=== PATIENT | male | born 1965 | race Two or more races ===

== ENCOUNTER → 2020-07-18 12:51 | Outpatient (BNVA) | payer OTHER, SELFPAY | PROVIDERS: PCP Internal Medicine; Referring Provider Internal Medicine; Visit Provider Nurse Practitioner Gerontology | DX: E11.42 Type 2 diabetes mellitus with diabetic polyneuropathy (principal); I10 Essential (primary) hypertension; E78.5 Hyperlipidemia, unspecified | CPT/HCPCS: 82947; 99212 ==

== ENCOUNTER → 2020-08-22 11:57 | Outpatient (BNVA) | payer OTHER, SELFPAY | PROVIDERS: PCP Internal Medicine; Visit Provider Nurse Practitioner Gerontology | DX: Z76.89 Persons encountering health services in other specified circumstances (principal) ==

== ENCOUNTER 2020-10-03 10:02 | Outpatient (REF) | payer OTHER, SELFPAY ==
[2020-10-03 10:54] LABS: Estimated Average Glucose 146 mg/dL; Hemoglobin A1c % 6.7 %
[2020-10-03 11:04] LABS: Alanine Aminotransferase 45 U/L (0-40); Albumin Level 4.2 g/dL (3.5-5.0); Alkaline Phosphatase 94 U/L (39-117); Anion Gap 12 (12-20); Aspartate Amino Transferase 35 U/L (5-37); Bilirubin Total 0.6 mg/dL (0.0-1.0); Blood Urea Nitrogen 12 mg/dL (9-16); Calcium 9.4 mg/dL (8.4-10.2); Carbon Dioxide 30 mmol/L (22-29); Chloride 106 mmol/L (96-108); Cholesterol 119 mg/dL; Estimated Glomerular Filt Rate > 60; Glucose Fasting 117 mg/dL (60-99); HDL Cholesterol 28 mg/dL; LDL Cholesterol Calculated 75 mg/dl; Potassium 4.7 mmol/L (3.3-5.1); Sodium 143 mmol/L (135-145); Triglycerides 81 mg/dL
[2020-10-03 15:29] LABS: Creatinine Urine 59.82 mg/dL; Microalbumin Urine < 5.0 mg/L
== END 2020-10-03 10:03 | disposition home or self-care (01) ==
LOC: HO.10HDL 10:02
PROVIDERS: Visit Provider Nurse Practitioner Gerontology
DX: E11.42 Type 2 diabetes mellitus with diabetic polyneuropathy (principal)
CPT/HCPCS: 36415; 80053; 80061; 82043; 83036

== ENCOUNTER → 2020-10-06 13:01 | Outpatient (BNVA) | payer OTHER, SELFPAY | PROVIDERS: PCP Internal Medicine; Visit Provider Nurse Practitioner Gerontology | DX: E11.42 Type 2 diabetes mellitus with diabetic polyneuropathy (principal); I10 Essential (primary) hypertension; E78.5 Hyperlipidemia, unspecified | CPT/HCPCS: 82947; 99212 ==

== ENCOUNTER → 2021-01-01 12:17 | Outpatient (BNVA) | payer OTHER, SELFPAY | PROVIDERS: PCP Internal Medicine; Visit Provider Nurse Practitioner Gerontology | DX: E11.42 Type 2 diabetes mellitus with diabetic polyneuropathy (principal); E78.5 Hyperlipidemia, unspecified; I10 Essential (primary) hypertension | CPT/HCPCS: 82947; 99212 ==

== ENCOUNTER → 2021-07-09 12:01 | Outpatient (BNVA) | payer OTHER, SELFPAY | PROVIDERS: PCP Internal Medicine; Visit Provider Nurse Practitioner Gerontology | DX: E11.42 Type 2 diabetes mellitus with diabetic polyneuropathy (principal); I10 Essential (primary) hypertension; E78.5 Hyperlipidemia, unspecified | CPT/HCPCS: 82947; 83036; 99212 ==

== ENCOUNTER 2021-11-23 10:53 | Outpatient (REF) | payer OTHER, SELFPAY ==
[2021-11-23 11:43] LABS: Estimated Average Glucose 134 mg/dL; Hemoglobin A1c % 6.3 %
[2021-11-23 12:13] LABS: Alanine Aminotransferase 33 U/L (0-40); Alkaline Phosphatase 90 U/L (39-117); Anion Gap 12 (12-20); Aspartate Amino Transferase 27 U/L (5-37); Bilirubin Total 0.8 mg/dL (0.0-1.0); Blood Urea Nitrogen 10 mg/dL (9-16); Calcium 9.8 mg/dL (8.4-10.2); Carbon Dioxide 27 mmol/L (22-29); Chloride 107 mmol/L (96-108); Estimated Glomerular Filt Rate > 60; Glucose Random 118 mg/dL (60-115); Potassium 4.5 mmol/L (3.3-5.1); Sodium 141 mmol/L (135-145); Total Protein 6.9 g/dL (6.5-8.0)
== END 2021-11-23 10:54 | disposition home or self-care (01) ==
LOC: HO.LAB 10:53
PROVIDERS: PCP Internal Medicine; Visit Provider Internal Medicine
DX: Z00.00 Encounter for general adult medical examination without abnormal findings (principal); E11.9 Type 2 diabetes mellitus without complications; E78.00 Pure hypercholesterolemia, unspecified; I10 Essential (primary) hypertension; M43.3 Recurrent atlantoaxial dislocation with myelopathy; Z86.010 Personal history of colon polyps
CPT/HCPCS: 36415; 80053; 83036

== ENCOUNTER → 2022-02-27 14:54 | Outpatient (BNVA) | payer OTHER, SELFPAY | PROVIDERS: PCP Internal Medicine; Visit Provider Internal Medicine Endocrinology, Diabetes & Metabolism | DX: E11.42 Type 2 diabetes mellitus with diabetic polyneuropathy (principal); Z96.41 Presence of insulin pump (external) (internal); Z79.4 Long term (current) use of insulin | CPT/HCPCS: 82947; 99212 ==

== ENCOUNTER → 2022-04-01 14:44 | Outpatient (BNVA) | payer OTHER, SELFPAY | PROVIDERS: PCP Internal Medicine; Visit Provider Registered Nurse Diabetes Educator | DX: E11.65 Type 2 diabetes mellitus with hyperglycemia (principal); E11.42 Type 2 diabetes mellitus with diabetic polyneuropathy; Z89.411 Acquired absence of right great toe; Z96.41 Presence of insulin pump (external) (internal); Z79.4 Long term (current) use of insulin; Z46.81 Encounter for fitting and adjustment of insulin pump | CPT/HCPCS: 99211 ==

== ENCOUNTER → 2022-04-29 14:38 | Outpatient (BNVA) | payer OTHER, SELFPAY | PROVIDERS: PCP Internal Medicine; Visit Provider Registered Nurse Diabetes Educator | DX: Z46.81 Encounter for fitting and adjustment of insulin pump (principal); E11.42 Type 2 diabetes mellitus with diabetic polyneuropathy; Z79.4 Long term (current) use of insulin | CPT/HCPCS: 99211 ==

== ENCOUNTER 2022-06-20 10:13 | Outpatient (REF) | payer OTHER, SELFPAY ==
[2022-06-20 14:15] LABS: Alanine Aminotransferase 23 U/L (0-40); Albumin Level 4.1 g/dL (3.5-5.0); Alkaline Phosphatase 76 U/L (39-117); Anion Gap 13 (12-20); Aspartate Amino Transferase 24 U/L (5-37); Bilirubin Total 0.4 mg/dL (0.0-1.0); Blood Urea Nitrogen 12 mg/dL (9-16); Calcium 9.6 mg/dL (8.4-10.2); Carbon Dioxide 29 mmol/L (22-29); Chloride 106 mmol/L (96-108); Estimated Glomerular Filt Rate > 60; Glucose Random 107 mg/dL (60-115); Prostate Specific Antigen 1.09 ng/mL (<0.05-4.0); Sodium 143 mmol/L (135-145); Total Protein 6.7 g/dL (6.5-8.0)
[2022-06-20 14:16] LABS: Estimated Average Glucose 120 mg/dL; Hemoglobin A1c % 5.8 %
== END 2022-06-20 10:14 | disposition home or self-care (01) ==
LOC: HO.10HDL 10:13
PROVIDERS: Visit Provider Internal Medicine
DX: Z00.00 Encounter for general adult medical examination without abnormal findings (principal); E11.40 Type 2 diabetes mellitus with diabetic neuropathy, unspecified; E78.00 Pure hypercholesterolemia, unspecified; I10 Essential (primary) hypertension
CPT/HCPCS: 36415; 80053; 83036; 84153

== ENCOUNTER → 2022-07-02 13:34 | Outpatient (BNVA) | payer OTHER, SELFPAY | PROVIDERS: PCP Internal Medicine; Visit Provider Internal Medicine Endocrinology, Diabetes & Metabolism | DX: E11.42 Type 2 diabetes mellitus with diabetic polyneuropathy (principal); Z79.4 Long term (current) use of insulin; Z79.84 Long term (current) use of oral hypoglycemic drugs; Z96.41 Presence of insulin pump (external) (internal) | CPT/HCPCS: 82947; 99212 ==

== ENCOUNTER → 2022-09-02 13:30 | Outpatient (BNVA) | payer OTHER, SELFPAY | PROVIDERS: PCP Internal Medicine; Visit Provider Registered Nurse Diabetes Educator | DX: E11.42 Type 2 diabetes mellitus with diabetic polyneuropathy (principal); Z79.4 Long term (current) use of insulin; Z96.41 Presence of insulin pump (external) (internal) | CPT/HCPCS: 99211 ==

== ENCOUNTER → 2022-09-25 13:00 | Outpatient (BNVA) | payer OTHER, SELFPAY | PROVIDERS: PCP Internal Medicine; Visit Provider Internal Medicine Endocrinology, Diabetes & Metabolism | DX: E11.42 Type 2 diabetes mellitus with diabetic polyneuropathy (principal); Z96.41 Presence of insulin pump (external) (internal) | CPT/HCPCS: 82947; 83036; 99212 ==

== ENCOUNTER 2023-03-05 13:01 | Outpatient (AMB) | payer OTHER, SELFPAY ==
--- NOTE | 2023-03-05 13:10 | A.OFFVIS_ITS ---
Intake Intake Visit Reasons: DM with pump Allergies No Known Allergies Allergy (Verified 02/27/22 15:04) [facility] Comprehensive Diabetes Asmnt Most Recent Diabetes Results: Creatinine 0.83 mg/dL (0.5-1.4) 06/20/22 Blood Urea Nitrogen 12 mg/dL (9-16) 06/20/22 Sodium 143 mmol/L (135-145) 06/20/22 Potassium 5.0 mmol/L (3.3-5.1) 06/20/22 Chloride 106 mmol/L (96-108) 06/20/22 Carbon Dioxide 29 mmol/L (22-29) 06/20/22 Calcium 9.6 mg/dL (8.4-10.2) 06/20/22 AST 24 U/L (5-37) 06/20/22 ALT 23 U/L (0-40) 06/20/22 Total Protein 6.7 g/dL (6.5-8.0) 06/20/22 Albumin 4.1 g/dL (3.5-5.0) 06/20/22 [facility] Medical History Essential hypertension Hyperlipidemia LDL goal <100 Neuropathy Type 2 diabetes mellitus with polyneuropathy Surgical History History of amputation of right great toe Hx of umbilical hernia repair Family History Father Diabetes Mother Diabetes Hypertension Heart disease Maternal Aunt Diabetes Paternal Aunt Diabetes Paternal Uncle Diabetes Social History (Updated 09/25/22 @ 13:20 by ABBE Klein) Household Members: Family Alcohol intake: never Patient Tobacco Use Status: Never used Tobacco Assessment & Plan Assessment & Plan (1) Type 2 diabetes mellitus with polyneuropathy: Code(s): E11.42 - Type 2 diabetes mellitus with diabetic polyneuropathy Plan: Patient presents for pump training for T [facility] with control IQ and Dexcom G6 patient lost transmitter and has not been able to use insulin pump with Dexcom G6 integration At today's visit Gave patient sample sensor and transmitter, connected transmitter to both insulin pump and patient's self Patient has been frustrated with can activity issues between insulin pump and Dexcom G6, he has had to replace sensors after sleeping directly on sensor in transmitter. Patient asked if he could switch to Omnipod 5 Explained to patient that both Omnipod and T slim use Dexcom G6 sensors, having can activity issues can happen either pump The following topics were reviewed today: - When to change set or Pod - T slim with control IQ verses Omnipod 5 - try not to sleep directly on transmitter to promote better can activity - Sensor setting (if applicable) ??? High Alert: 200 mg/dl ??? Low Alert: 70? mg/dl patient above target 7% patient at target 92% patient below target 1% patient's average glucose for the past 2 weeks 133 mg/dL patient's last A1c December 2022, patient did not recall value. Patient has next appointment with Dr. Lopez in 03/13/2023 Safety information: Patient understands the basic concepts of pump therapy, how to give insulin for meals and snacks, how to troubleshoot for hyper and hypoglycemia. reviewed with patient how important it is to change insulin delivery set every 72 hours to prevent infection or hypertrophy Reviewed with patient how to treat hypoglycemia and to call if hypoglycemia increases Setting verified by CDCES, no changes made to patient's pump settings at today's visit Basal rate(s) (units/hour) : 12 AM to 8 AM 0.9 units / hr 8 AM? to 12 AM? 0.85 units / hr Bolus setting Insulin Carbohydrate Ratio (s) 12 AM to 12 AM? 1:10 Correction Factor / Sensitivity Factor 12 AM to 12 AM? 1:40 Active Insulin Time:? 5 hours Target(s): Control IQ 12 AM to 12 AM? 110 Coding Level of Care Code Est Pt Level 1 (28359) Diagnoses Type 2 diabetes mellitus with polyneuropathy E11.42
== END 2023-03-05 13:24 | disposition home or self-care (01) ==
PROVIDERS: PCP Internal Medicine; Visit Provider Registered Nurse Diabetes Educator
DX: E11.42 Type 2 diabetes mellitus with diabetic polyneuropathy (principal)

== ENCOUNTER → 2023-03-05 13:01 | Outpatient (BNVA) | payer OTHER, SELFPAY | PROVIDERS: PCP Internal Medicine; Visit Provider Registered Nurse Diabetes Educator | DX: Z46.81 Encounter for fitting and adjustment of insulin pump (principal); E11.42 Type 2 diabetes mellitus with diabetic polyneuropathy | CPT/HCPCS: 99211 ==

== ENCOUNTER 2023-03-13 12:58 | Outpatient (AMB) | payer OTHER, SELFPAY ==
--- NOTE | 2023-03-13 12:58 | A.OFFVIS_ITS ---
Intake Vital Signs 03/13/23 13:07 Height 5 ft 8 in Weight 195 lb 12.328 oz BMI 29.8 BP 112/62 Blood Pressure Location Lt brachial Position Sitting Pulse 80 Intake Visit Reasons: f/u Type 2 DM Intake Note: Patient here today for Diabetes type 2 follow up visit. For eye care patient last seen For foot care patient last seen February 25, 2023 Pump supplies received from [facility]. poc- a1c- 6.5 Special Crimes Investigator Required: Yes Special Crimes Investigator Language: Ivorian Accompanied by: Self / Same As Patient Allergies No Known Allergies Allergy (Verified 03/13/23 13:10) Medication List - Last Reconciled 03/13/23 by Cabrera Lopez MD aspirin 81 mg PO DAILY blood sugar diagnostic (FreeStyle Lite Strips) As directed four times a day blood-glucose meter,continuous (Dexcom G6 Civil Rights Investigator) As directed blood-glucose sensor (Dexcom G6 Sensor device) As directed blood-glucose transmitter (Dexcom G6 Transmitter device) As directed cyanocobalamin (vitamin B-12) 1,000 mcg PO dulaglutide (Trulicity) 1.5 mg (0.5 mL) subcut QWEEK epinephrine 0.3 mg IM ONCE PRN flash glucose scanning reader (FreeStyle Vane 14 Day [place]) As directed flash glucose sensor (FreeStyle Vane 14 Day Sensor kit) As directed Scan blood glucose 4 or more times daily, At least every 8 hours. gabapentin 600 mg PO TID insulin lispro (Humalog U-100 Insulin) up to 100 units via pump subcut daily; lancets (FreeStyle Lancets) As directed lisinopril 5 mg PO mecobalamin (vitamin B12) 1,000 mcg PO DAILY metformin 1,000 mg PO BID pen needle, diabetic (BD Cathi 2nd Gen Pen Needle) As directed rosuvastatin 20 mg PO BEDTIME triamcinolone acetonide (Nasacort) 1 spray intranasal DAILY HPI HPI Comments History of Present Illness Details Patient is 57 yo male with DM type 2 diagnosed 1995 who presents for continued management of diabetes. Past medical history: Dm2, HTN, HLD, Micro and macrovascular complications: , +neuropathy, + PVD Diabetes medications: Humalog via Tandem T:Slim metformin 1000 mg BID Symptoms reported: reports hot and cold legs and feet. Hypoglycemia: very rare once a week infreqently Hyperglycemia: + urinary frequency,(drinks frequently)+ nocturia on occasion, Tandem Tslim: X2 with control IQ pump settings: Also on Trulicity 1.5 mg q.week and metformin 1000 mg b.i.d. Basal rate(s) (units/hour) : 12 AM to 8 AM 0.9 units / hr 8 AM? to 12 AM? 0.85 units / hr Bolus setting Insulin Carbohydrate Ratio (s) 12 AM to 12 AM? 1:10 Correction Factor / Sensitivity Factor 12 AM to 12 AM? 1:40 Active Insulin Time:? 5 hours Target(s): Control IQ 12 AM to 12 AM? 110 Total daily insulin dose is 50.7 with basal being 39% and food bolus being 61% CGM: [employer] download. Contr CGMS active 79% of the time. showsol IQ time off 0% . Average glucose is 136. 93% in target with 7% hyperglycemia and 0% hypoglycemia sees podiatry 02/03/22 Exercise: Not opptimal Eye exam: 10/2022 - no retinopathy saw optho No hypoglycemia Laboratory Tests 01/01/21 12:54 Hgb A1c (Clinic) 6.5 H [facility] Medical History Essential hypertension Hyperlipidemia LDL goal <100 Neuropathy Type 2 diabetes mellitus with polyneuropathy Surgical History (Updated 03/13/23 @ 13:20 by Christy Henning) History of amputation of right great toe History of orchiectomy Hx of umbilical hernia repair Family History Father Diabetes Mother Diabetes Hypertension Heart disease Maternal Aunt Diabetes Paternal Aunt Diabetes Paternal Uncle Diabetes Social History Household Members: Family Alcohol intake: never Patient Tobacco Use Status: Never used Tobacco Physical Exam Vital Signs: Last Vital Signs Pulse 80 03/13/23 13:07 BP 112/62 03/13/23 13:07 BMI result Body Mass Index 29.8 Absence of Cushingoid features. Absence of acromegalic features. Neck exam reveals nl size thyroid about 15 gms. No thyroid nodules palpable. No carotid bruits present. Lungs CTA. Heart S1 S2, Reg R/R. No M/R/ G. Skin exam reveals absence of vitiligo or acanthosis nigricans. Abdominal exam reveals Soft NT/ND with NA BS. No organomegaly present. Neck Other: . Extrem Other: Visual exam of foot performed. There is amputation of the 1st digit on the right lower extremity. No ulcerations or open lesions. No onchomycosis, no callouses.Pulses 2 + distally Sensation decreased to monofilament exam. Vibratory sensation sensed is decreased with 128 Hz tuning fork Results AMB Hemoglobin A1c AMB Hemoglobin A1c 6.5 % Last Edit by Christy Henning on 03/13/23 13:33 Results Reviewed Results Reviewed: 03/13/23 13:16 Glucose, Whole Blood Routine Laboratory Last Values Glucose (Clinic) 88 mg/dL (60-115) 03/13/23 13:16 Hgb A1c (Clinic) 6.5 % (4.0-6.0) H 03/13/23 13:32 Assessment & Plan Assessment & Plan (1) Type 2 diabetes mellitus with polyneuropathy: Code(s): E11.42 - Type 2 diabetes mellitus with diabetic polyneuropathy Plan: This is a 56-year-old male with a history of type 2 diabetes being treated with a tandem T-slim pump and metformin with excellent glycemic control and known microvascular complications namely neuropathy. Plan is to change to Trulicity to Mounjaro 2.5 mg Q weekly and titrate according totolerability. Went over side effects of Mounjaro including but not limited to nausea, vomiting and rare risk of pancreatitis. Will transition insulin pump to Lantus 20 units in conjunction with the metformin. Would have patient check lipid profile and microalbumin to creatinine ratio Mounjaro 2.5 mg samples given to patient lot number [id number] expiration date 09/12/24 Orders: Orders Lipid Panel Today E11.42 - Type 2 diabetes mellitus with diabetic polyneuropathy Microalbumin, Random (w Creat) Today E11.42 - Type 2 diabetes mellitus with diabetic polyneuropathy Medications: New tirzepatide (Mounjaro) 2.5 mg (0.5 mL) subcut QWEEK 4 weeks 2 mL 0RF insulin glargine (Lantus Solostar U-100 Insulin) 20 units (0.2 mL) subcut QAM 15 mL 4RF Discontinued dulaglutide (Trulicity) Discontinued Reason: Doctor's Order 1.5 mg (0.5 mL) subcut QWEEK 2 mL 5RF Coding Level of Care Code Est Pt Level 4 (20105) Diagnoses Type 2 diabetes mellitus with polyneuropathy E11.42
[2023-03-13 13:07] VITALS: BP 112/62; PULSE 80; BMI 29.8
[2023-03-13 13:19] LABS: Glucose, Whole Blood 88 mg/dL (60-115)
== END 2023-03-13 13:41 | disposition home or self-care (01) ==
PROVIDERS: PCP Internal Medicine; Visit Provider Internal Medicine Endocrinology, Diabetes & Metabolism
DX: E11.42 Type 2 diabetes mellitus with diabetic polyneuropathy (principal)
CPT/HCPCS: 99214

== ENCOUNTER → 2023-03-13 12:58 | Outpatient (BNVA) | payer OTHER, SELFPAY | PROVIDERS: Visit Provider Internal Medicine Endocrinology, Diabetes & Metabolism | DX: E11.42 Type 2 diabetes mellitus with diabetic polyneuropathy (principal) | CPT/HCPCS: 82947; 99212 ==

== ENCOUNTER 2023-04-03 09:19 | Outpatient (AMB) | payer OTHER, SELFPAY ==
--- NOTE | 2023-04-03 10:01 | A.OFFVIS_ITS ---
Intake Intake Visit Reasons: DM/ pump dexcom Residential Field Manager Required: Yes Residential Field Manager Language: Advertisement Compositor Name: Mamie [facility] Information Interpreted: non-clinical & clinical Accompanied by: Self / Same As Patient Allergies No Known Allergies Allergy (Verified 03/13/23 13:10) [facility] Comprehensive Diabetes Asmnt Most Recent Diabetes Results: Creatinine 0.83 mg/dL (0.5-1.4) 06/20/22 Blood Urea Nitrogen 12 mg/dL (9-16) 06/20/22 Sodium 143 mmol/L (135-145) 06/20/22 Potassium 5.0 mmol/L (3.3-5.1) 06/20/22 Chloride 106 mmol/L (96-108) 06/20/22 Carbon Dioxide 29 mmol/L (22-29) 06/20/22 Calcium 9.6 mg/dL (8.4-10.2) 06/20/22 AST 24 U/L (5-37) 06/20/22 ALT 23 U/L (0-40) 06/20/22 Total Protein 6.7 g/dL (6.5-8.0) 06/20/22 Albumin 4.1 g/dL (3.5-5.0) 06/20/22 [facility] Medical History Essential hypertension Hyperlipidemia LDL goal <100 Neuropathy Type 2 diabetes mellitus with polyneuropathy Surgical History (Updated 03/13/23 @ 13:20 by Christy Henning) History of amputation of right great toe History of orchiectomy Hx of umbilical hernia repair Family History Father Diabetes Mother Diabetes Hypertension Heart disease Maternal Aunt Diabetes Paternal Aunt Diabetes Paternal Uncle Diabetes Social History Household Members: Family Alcohol intake: never Patient Tobacco Use Status: Never used Tobacco Assessment & Plan Assessment & Plan (1) Type 2 diabetes mellitus with polyneuropathy: Code(s): E11.42 - Type 2 diabetes mellitus with diabetic polyneuropathy Plan: Patient at visit to set up an insert Dexcom G6 Patient is transitioning from T slim insulin pump to Lantus 20 units and Mounjaro 2.5 mg Instructed patient sensors water proof you can shower, or swim do not submerge sensor in water for over 30 minutes Is sensor falls off cannot put back in you need to replace sensor, customer service number given to patient for sensor replacement Set up patient's G6 Dexcom oil dispenser, and patient's Dexcom G6 ehsan in cellphone Sensor placed on the upper left abdomen Patient left visit with sensor in warmup Reviewed how to interpret trend arrows Reminded patient that to check finger sticks if symptoms do not match sensor reading. Discussed lag time between finger stick and sensor data.? Instructed patient she should always keep blood glucometer for backup testing if needed Reviewed delay of CGM from fingersticks Reminded pt that if symptoms do not match sensor still needs to check fingersticks. Patient instruction: CGM provides information on blood glucose control throughout the day, including hyperglycemia and hypoglycemia. ? Continue to monitor blood glucose as instructed. Follow nutrition guidelines provided. Report any discomfort promptly to health care provider. ?Stay well-hydrated. You can bathe ,shower, swim and exercise while wearing the glucose sensor. Do not submerge glucose sensor in water for more than 30 minutes. Patient will follow-up with Diabetes Education nurse in 1 month Patient Instructions: Instrucciones para el paciente: CGM proporciona informaci?n sobre el control de la glucosa en ezekiel a lo teodoro del d?a, incluidas la hiperglucemia y la hipoglucemia. Contin?e controlando la glucosa en ezekiel seg?n las instrucciones. Siga las pautas de nutrici?n proporcionadas. Informe cualquier molestia de inmediato al proveedor de atenci?n m?dica. Mantente otis hidratado. Puede ba?arse, ducharse, nadar y hacer ejercicio mientras usa el sensor de glucosa. No sumerja el sensor de glucosa en agua omayra m?s de 30 minutos. Retire el sensor para fabian resonancia magn?karis o fabian tomograf?a computarizada. Evite la m?quina de gonzalo X en los aeropuertos: retire el sensor o solicite la varita Coding Level of Care Code Est Pt Level 1 (23188) Diagnoses Type 2 diabetes mellitus with polyneuropathy E11.42
== END 2023-04-03 10:06 | disposition home or self-care (01) ==
PROVIDERS: PCP Internal Medicine; Visit Provider Registered Nurse Diabetes Educator
DX: E11.42 Type 2 diabetes mellitus with diabetic polyneuropathy (principal)

== ENCOUNTER → 2023-04-03 09:19 | Outpatient (BNVA) | payer OTHER, SELFPAY | PROVIDERS: PCP Internal Medicine; Visit Provider Registered Nurse Diabetes Educator | DX: E11.42 Type 2 diabetes mellitus with diabetic polyneuropathy (principal) | CPT/HCPCS: 99211 ==

== ENCOUNTER 2023-06-16 12:57 | Outpatient (AMB) | payer OTHER, SELFPAY ==
[2023-06-16 13:00] VITALS: BP 98/56; PULSE 72; BMI 29.2
--- NOTE | 2023-06-16 13:00 | A.OFFVIS_ITS ---
Intake Vital Signs 06/16/23 13:00 Height 5 ft 8 in Weight 192 lb 3.889 oz BMI 29.2 BP 98/56 L Blood Pressure Location Lt brachial Position Sitting Pulse 72 Pulse Source Pulse Oximeter Intake Visit Reasons: f/u Type 2 DM Intake Note: Patient present today to follow up on Type 2 Diabetes Mellitus. Patient receives DME supplies through: [facility] Last Diabetic Eye exam: 10/2022 Last Podiatry Visit: 02/25/2023 Random Glucose: 135 mg/dl HgA1C: 6.3% Cut Out And Marking Machine Operator Required: Yes Cut Out And Marking Machine Operator Language: Bahamian Information Interpreted: non-clinical & clinical Accompanied by: Self / Same As Patient Allergies No Known Allergies Allergy (Verified 03/13/23 13:10) Medication List - Last Reconciled 06/16/23 by Cabrera Lopez MD aspirin 81 mg PO DAILY blood sugar diagnostic (FreeStyle Lite Strips) As directed four times a day blood-glucose meter,continuous (Dexcom G6 Building Energy Retrofit Technician) As directed blood-glucose sensor (Dexcom G6 Sensor device) As directed blood-glucose transmitter (Dexcom G6 Transmitter device) As directed cyanocobalamin (vitamin B-12) 1,000 mcg PO epinephrine 0.3 mg IM ONCE PRN flash glucose scanning reader (FreeStyle Vane 14 Day [place]) As directed flash glucose sensor (FreeStyle Vane 14 Day Sensor kit) As directed Scan blood glucose 4 or more times daily, At least every 8 hours. gabapentin 600 mg PO TID insulin glargine (Lantus Solostar U-100 Insulin) 20 units (0.2 mL) subcut QAM insulin lispro (Humalog U-100 Insulin) up to 100 units via pump subcut daily; lancets (FreeStyle Lancets) As directed lisinopril 5 mg PO mecobalamin (vitamin B12) 1,000 mcg PO DAILY metformin 1,000 mg PO BID pen needle, diabetic (BD Cathi 2nd Gen Pen Needle) As directed rosuvastatin 20 mg PO BEDTIME tirzepatide (Mounjaro) 2.5 mg (0.5 mL) subcut QWEEK triamcinolone acetonide (Nasacort) 1 spray intranasal DAILY HPI HPI Comments History of Present Illness Details Patient is 57 yo male with DM type 2 diagnosed 1995 who presents for continued management of diabetes. Past medical history: Dm2, HTN, HLD, Micro and macrovascular complications: , +neuropathy, + PVD Diabetes medications: Humalog via Tandem T:Slim metformin 1000 mg BID Symptoms reported: reports hot and cold legs and feet. Hypoglycemia: very rare once a week infreqently Hyperglycemia: + urinary frequency,(drinks frequently)+ nocturia on occasion, Lantus 20 units Humalog Mounjaro 2.5 mg Qwkly CGM: Dexcom download. Contr CGMS active 71% of the time. showsol IQ time off 0% . Average glucose is 146. 82% in target with 18% hyperglycemia and 0% hypoglycemia sees podiatry 02/03/22 Exercise: Not opptimal Eye exam: 10/2022 - no retinopathy saw optho No hypoglycemia Laboratory Tests 01/01/21 12:54 Hgb A1c (Clinic) 6.5 H PF[facility] Medical History Neuropathy Type 2 diabetes mellitus with polyneuropathy Essential hypertension Hyperlipidemia LDL goal <100 Surgical History History of orchiectomy Hx of umbilical hernia repair History of amputation of right great toe Family History Father Diabetes Mother Diabetes Hypertension Heart disease Maternal Aunt Diabetes Paternal Aunt Diabetes Paternal Uncle Diabetes Social History Household Members: Family Alcohol intake: never Patient Tobacco Use Status: Never used Tobacco Physical Exam Vital Signs: Last Vital Signs Pulse 72 06/16/23 13:00 BP 98/56 L 06/16/23 13:00 BMI result Body Mass Index 29.2 Absence of Cushingoid features. Absence of acromegalic features. Neck exam reveals nl size thyroid about 15 gms. No thyroid nodules palpable. No carotid bruits present. Lungs CTA. Heart S1 S2, Reg R/R. No M/R/ G. Skin exam reveals absence of vitiligo or acanthosis nigricans. Abdominal exam reveals Soft NT/ND with NA BS. No organomegaly present. Neck Other: . Extrem Other: Visual exam of foot performed. There is amputation of the 1st digit on the right lower extremity. No ulcerations or open lesions. No onchomycosis, no callouses.Pulses 2 + distally Sensation decreased to monofilament exam. Vibratory sensation sensed is decreased with 128 Hz tuning fork Results Reviewed Results Reviewed: 06/16/23 13:10 Glucose, Whole Blood Routine Laboratory Last Values Glucose (Clinic) 135 mg/dL (60-115) H 06/16/23 13:10 Assessment & Plan Assessment & Plan (1) Type 2 diabetes mellitus with polyneuropathy: Code(s): E11.42 - Type 2 diabetes mellitus with diabetic polyneuropathy Plan: This is a 58-year-old male with a history of type 2 diabetes being treated with a metformin, Mounjaro and nasal insulin with excellent glycemic control and known microvascular complications namely neuropathy. Plan is to continue the current regimen . At this point, patient can follow up with his primary care provider and return back to endocrinology should his HbA1c deteriorate Coding Level of Care Code Est Pt Level 4 (64734) Diagnoses Type 2 diabetes mellitus with polyneuropathy E11.42
[2023-06-16 13:15] LABS: Glucose, Whole Blood 135 mg/dL (60-115)
== END 2023-06-16 13:38 | disposition home or self-care (01) ==
PROVIDERS: PCP Internal Medicine; Visit Provider Internal Medicine Endocrinology, Diabetes & Metabolism
DX: E11.42 Type 2 diabetes mellitus with diabetic polyneuropathy (principal)
CPT/HCPCS: 99214

== ENCOUNTER → 2023-06-16 12:57 | Outpatient (BNVA) | payer OTHER, SELFPAY | PROVIDERS: PCP Internal Medicine; Visit Provider Internal Medicine Endocrinology, Diabetes & Metabolism | DX: E11.42 Type 2 diabetes mellitus with diabetic polyneuropathy (principal); Z79.4 Long term (current) use of insulin | CPT/HCPCS: 82947; 99212 ==

== ENCOUNTER → 2023-06-17 08:28 | Outpatient (BNV) | payer OTHER, SELFPAY | PROVIDERS: PCP Internal Medicine; Visit Provider Internal Medicine Endocrinology, Diabetes & Metabolism | DX: E11.42 Type 2 diabetes mellitus with diabetic polyneuropathy (principal) | CPT/HCPCS: 83036 ==

== ENCOUNTER 2023-08-27 13:37 | Outpatient (AMB) | payer OTHER, SELFPAY ==
--- NOTE | 2023-08-27 13:39 | A.OFFVIS_ITS ---
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 Patient reports for about 3-4 months locking and catching in his middle finger. He states with making a fist his finger will lock. Denies injury, numbness or tingling. No previous tx. 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 He states he has catching and locking in his right middle finger for about 3 months. He also c/o locking of his finger with making a fist. He denies any previous injury, numbness or tingling and has not had any treatment in the past. [facility] Medical History (Updated 08/27/23 @ 14:01 by Dajuan Larson) Neuropathy Type 2 diabetes mellitus with polyneuropathy Essential hypertension Hyperlipidemia LDL goal <100 Surgical History History of orchiectomy Hx of umbilical hernia repair History of amputation of right great toe Family History Father Diabetes Mother Diabetes Hypertension Heart disease Maternal Aunt Diabetes Paternal Aunt Diabetes Paternal Uncle Diabetes Social History (Updated 08/27/23 @ 13:53 by ABBE Pride) Household Members: Family Alcohol intake: never Patient Tobacco Use Status: Never used Tobacco Current occupational status: employed 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, 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 Review of Systems Const All systems reviewed & are unremarkable except as noted in HPI and below Physical Exam Vital Signs: BMI result Body Mass Index 29.2 Const General: cooperative, healthy appearing, comfortable, no acute distress, well developed and alert Orientation/consciousness: patient oriented x3 HEENT Head: Yes normal to inspection, Yes normocephalic and Yes atraumatic Eyes General: appearance normal, both eyes and all related structures Resp Effort & Inspection: normal respiratory effort and able to speak in complete sentences Cardio Rate: regular rate Peripheral pulses: Peripheral pulses 2+ throughout GI Palpation (GI): Soft to palpation Skin Lesions: no lesions Rashes: no rashes Neuro General: patient oriented x3 Extrem Other: Right ring finger: Tender nodule along the A1 rufina with active catching and locking. NVI. Assessment & Plan Assessment & Plan (1) Trigger finger, right ring finger: Code(s): M65.341 - Trigger finger, right ring finger Plan We discussed options which include conservative vs operative treatment. Since the patient has been symptomatic for several months and it is impacting their daily life, the decision was made to undergo Trigger release. We discussed risk, benefits and alternatives. Risk including but not limited to infection, stiffness, ongoing trigger or catching. He does understand all this and would like to proceed with right ring finger trigger release with Dr. Royal. He will be booked accordingly. Patient Instructions: Scribed for Noam Mendiola PA-C, by Dajuan Larson senior medical technologist, on 08/27/2023 at 1:45 PM EST. I, Noam Mendiola PA-C, have personally reviewed and agree with the information entered by the scribe. Coding Level of Care Code New Pt Level 4 (65412) Diagnoses Trigger finger, right ring finger M65.341
[2023-08-27 13:50] VITALS: BMI 29.2
== END 2023-08-27 14:22 | disposition home or self-care (01) ==
PROVIDERS: PCP Internal Medicine; Visit Provider Physician Assistant
DX: M65.341 Trigger finger, right ring finger (principal)
CPT/HCPCS: 99204

== ENCOUNTER → 2023-08-27 13:37 | Outpatient (BNVA) | payer OTHER, SELFPAY | PROVIDERS: PCP Internal Medicine; Visit Provider Physician Assistant | DX: M65.341 Trigger finger, right ring finger (principal) | CPT/HCPCS: 99202 ==

== ENCOUNTER 2023-09-10 12:55 | Outpatient (AMB) | payer OTHER, SELFPAY ==
--- NOTE | 2023-09-10 13:24 | A.OFFVIS_ITS ---
Intake Intake Visit Reasons: DM with pump/CONFIRMED Hollock Maker Required: Yes Hollock Maker Language: Child Care Associate Teacher Name: Sara [id number] Accompanied by: Self / Same As Patient Allergies No Known Allergies Allergy (Verified 08/27/23 13:52) HPI Comprehensive Diabetes Asmnt Most Recent Diabetes Results: Microalb/Creat Ratio TNP 10/03/20 Cholesterol 119 mg/dL 10/03/20 HDL Cholesterol 28 mg/dL 10/03/20 Triglycerides 81 mg/dL 10/03/20 Creatinine 0.83 mg/dL (0.5-1.4) 06/20/22 Blood Urea Nitrogen 12 mg/dL (9-16) 06/20/22 Sodium 143 mmol/L (135-145) 06/20/22 Potassium 5.0 mmol/L (3.3-5.1) 06/20/22 Chloride 106 mmol/L (96-108) 06/20/22 Carbon Dioxide 29 mmol/L (22-29) 06/20/22 Calcium 9.6 mg/dL (8.4-10.2) 06/20/22 AST 24 U/L (5-37) 06/20/22 ALT 23 U/L (0-40) 06/20/22 Total Protein 6.7 g/dL (6.5-8.0) 06/20/22 Albumin 4.1 g/dL (3.5-5.0) 06/20/22 [facility] Medical History (Updated 08/27/23 @ 14:01 by Dajuan Larson) Neuropathy Type 2 diabetes mellitus with polyneuropathy Essential hypertension Hyperlipidemia LDL goal <100 Surgical History History of orchiectomy Hx of umbilical hernia repair History of amputation of right great toe Family History Father Diabetes Mother Diabetes Hypertension Heart disease Maternal Aunt Diabetes Paternal Aunt Diabetes Paternal Uncle Diabetes Social History (Updated 08/27/23 @ 13:53 by ABBE Pride) Household Members: Family Alcohol intake: never Patient Tobacco Use Status: Never used Tobacco Current occupational status: employed 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 The patient met all learning objectives and was able to verbalize understanding and provide teach back of education topics discussed . The patient was provided with the opportunity to ask questions and all questions were answered. Patient Assessment Assess patient education level/literacy/barriers Patient questions/concerns, patient's last A1c in June 2023 6.3% patient is no longer using pump patient's Dexcom G6 data 144 mg/dL for the past 2 weeks patient above target 11% patient at target 89% patient below target 0% patient denies any episodes of hypoglycemia within the past 2 months Patient instructed to contact boring machine operator helper if episodes of hypoglycemia increase Exercise Medical clearance Effect of exercise on blood sugar Start slowly and gradually increase pace/duration over time Goal amount of exercise Checking blood glucose/have a source of carbs with you Medications (If applicable) * Name of medication * Dosing/administration instructions * Mechanism of action * Potential side effects * Potential adverse reaction and appropriate treatment * Review onset, peak, duration Assess for concerns re: insurance coverage, cost, barriers to compliance Insulin/Injectables (If applicable) * Storage/care of insulin * Injection sites * Site rotation * Onset, peak, duration * Drawing up insulin * Injecting insulin/other injectables * Sharps disposal Continuous blood glucose monitoring (if applicable) Hypoglycemia and Hyperglycemia * Signs and symptoms * Causes * Treatment * Preventing hypoglycemia * When to seek medical attention Medical alert bracelet Lifestyle * Work * Travel * Stress management * Problem solving Know your goals * A1C * Blood sugar targets * Blood pressure * Cholesterol/LDL Urine microalbumin New Goal:? patient will contact boring machine operator helper if A1c is above target of 7% Educational Materials: The patient was provided with the following written educational materials: AADE screening checklist Patient Response to instructions: Comprehension of Instructions: good Readiness to make changes: action How confident they feel about making changes: positive Patient Instructions: Incluir actividad diaria regular. ADA recomienda 30 minutos de ejercicio 5 d?as a la semana. P?rdida de peso, hable con el PCP o el cardi?logo antes de comenzar un nuevo plan. Mida el nivel de az?car en la ezekiel seg?n las indicaciones; Ayuno y comida m?s aman de 2hpp. Observe las tendencias en los resultados. Utilice los resultados y eval?e c?mo los alimentos, la actividad f?maame y los medicamentos afectan los resultados de az?car en la ezekiel. Lleve el gluc?metro o CGM a la pr?xima visita. Conocer los medicamentos para la diabetes, ye acci?n, los efectos secundarios, la eficacia, la toxicidad, la dosis prescrita, el momento y la frecuencia de administraci?n apropiados, el efecto de las dosis olvidadas y retrasadas y las instrucciones de almacenamiento, viaje y seguridad. T?cnicas de resoluci?n de problemas para el seguimiento de episodios de hipo/hiperglucemia y tratamientos. Reducir los comportamientos de reducci?n de riesgos, dejar de fumar, ex?menes regulares de ojos, pies y dentales. Coding Level of Care Code Est Pt Level 1 (45095) Diagnoses Type 2 diabetes mellitus with polyneuropathy E11.42
== END 2023-09-10 14:32 | disposition home or self-care (01) ==
PROVIDERS: PCP Internal Medicine; Visit Provider Registered Nurse Diabetes Educator
DX: E11.42 Type 2 diabetes mellitus with diabetic polyneuropathy (principal)

== ENCOUNTER → 2023-09-10 12:57 | Outpatient (BNVA) | payer OTHER, SELFPAY | PROVIDERS: PCP Internal Medicine; Visit Provider Registered Nurse Diabetes Educator | DX: E11.42 Type 2 diabetes mellitus with diabetic polyneuropathy (principal); Z96.41 Presence of insulin pump (external) (internal) | CPT/HCPCS: 99211 ==

== ENCOUNTER 2023-11-06 10:15 | Day surgery (SDC) | payer OTHER, SELFPAY ==
--- NOTE | 2023-11-06 09:43 | W.PM.OPN ---
Operative Note Operative Note Date of Service: 11/06/23 Narrative: Operative Note Preop diagnosis: 1. Right ring finger Trigger finger Postop diagnosis: 1. Right ring finger Trigger finger Procedure: 1. Right ring finger A1 rufina release Surgeon: Alesia Royal MD Anesthesia: local block using 1% lidocaine with epinephrine Findings: No locking or catching after A1 rufina release EBL: Less than 5 mL Tourniquet time: None Specimens: None Complications: None Disposition: Brought to recovery room in stable condition Plan: Follow-up for 10-14 days for wound check and suture removal Indications: The patient is 58 years old, with a right ring finger trigger finger that has been unresponsive to nonoperative management. The risks and benefits of operative treatment including but not limited to risk of damage to blood vessels, nerves, tendons, infection, persistent pain, persistent symptoms, recurrence or possible need for additional surgery were discussed with the patient and the patient wishes to proceed with surgery. Procedure: Once consent was obtained a local block was performed in the preop area using a combination of 1% lidocaine with epinephrine. The patient was then brought back to the operating suite and placed on the operative table in supine position. The right upper extremity was prepped and draped in a standard surgical fashion. Once assured that we had a good block, a 1.5 cm oblique incision was made centered over the A1 rufina of the right ring finger . The incision was made through the skin to the subcutaneous tissues using a #15 blade. Careful dissection was made down to the level of the A1 rufina using tenotomy scissors, with care being taken to protect the nearby neurovascular structures. A longitudinal incision was made in the A1 rufina 1st using a #15 blade, then using tenotomy scissors under direct visualization. The A1 rufina was noted to be thickened. Following our A1 rufina release, we no longer saw any locking or catching of the digit with flexion and extension. Once satisfied with our A1 rufina release the wound was copiously irrigated with normal saline and hemostasis was obtained with a brief period of local pressure. The skin edges were reapproximated with some 5.0 nylon suture material and a sterile dressing was applied. The patient appears to have tolerated the procedure well and with no complications. All digits were well vascularized at the conclusion of the case.
--- NOTE | 2023-11-06 10:46 | MHC.SHP ---
Pre-Procedural Eval Section A - 24 Hr Update-Section A only Date of Service: 11/06/23 The patient is an INPATIENT: No Changes since office visit: No Cold of Flu in the past 2 weeks, No New Medical Problems, No Changes in Medication and No Patient answered all questions The patient has been examined within 24 hours of the surgical procedure. The History & Physical has been completed within 30 days and I have reviewed it.: Yes Section B - Complete if H&P > 30 days Chief Complaint: Trigger finger, right ring finger Allergies: Allergies Allergy/AdvReac Type Severity Reaction Status Date / Time No Known Allergies Allergy Verified 08/27/23 13:52 Exam Exam Comment: Right ring finger trigger finger Plan Diagnosis/Plan: Unchanged I have reviewed the history and physical and performed a pertinent physical examination on my patient. No changes have occurred unless specified. Time Spent With Patient Time: Total time managing care of this patient today ____ minutes.
[2023-11-06 10:57] VITALS: BP 131/63; PULSE 84; RESP 18; TEMP 36.6; O2SAT 98; BMI 31.3
[2023-11-06 12:02] VITALS: BP 117/62; PULSE 79; RESP 18; O2SAT 98
[2023-11-06 12:46] VITALS: BP 117/62; PULSE 79; RESP 16; O2SAT 98
== END 2023-11-06 12:15 | disposition home or self-care (01) ==
PROVIDERS: PCP Internal Medicine; Visit Provider Orthopaedic Surgery
PROC: (CPT 26055; principal; 2023-11-06 11:00)
DX: M65.341 Trigger finger, right ring finger (principal); I10 Essential (primary) hypertension; E78.5 Hyperlipidemia, unspecified; E11.42 Type 2 diabetes mellitus with diabetic polyneuropathy; Z90.79 Acquired absence of other genital organ(s); Z89.411 Acquired absence of right great toe; Z98.890 Other specified postprocedural states
CPT/HCPCS: 26055; J0171

== ENCOUNTER → 2023-11-06 10:15 | Outpatient (BNV) | payer OTHER, SELFPAY | PROVIDERS: PCP Internal Medicine; Visit Provider Orthopaedic Surgery | DX: M65.341 Trigger finger, right ring finger (principal) | CPT/HCPCS: 26055 ==

== ENCOUNTER 2023-11-19 13:45 | Outpatient (AMB) | payer OTHER, SELFPAY ==
--- NOTE | 2023-11-19 14:01 | MHC.OFFVIS ---
Intake Vital Signs 11/19/23 14:02 Height 5 ft 8 in Weight 206 lb BMI 31.3 Handedness Right Intake Visit Reasons: PO RT RF trigger 11/06/23 [place] Intake Note: Narendra 58 yr old male presents today for his PO for his right ring finger trigger release from 11/06/23 AR. States his locking has subsided, however he expresses that he hears a clicking sound. Sutures removed an steri strips applied. Allergies No Known Allergies Allergy (Verified 11/19/23 14:02) HPI PO RT RF trigger 11/06/23 AR HPI Details Narendra is a 58 year old 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 Diabetic man who presents S/P right ring finger trigger release, DOS: 11/06/23. He says he is doing well and no longer has any locking or catching. He is concerned about a clicking sound in his finger when he opens his hand. [facility] Medical History (Updated 08/27/23 @ 14:01 by Dajuan Larson) Neuropathy Type 2 diabetes mellitus with polyneuropathy Essential hypertension Hyperlipidemia LDL goal <100 Surgical History History of orchiectomy Hx of umbilical hernia repair History of amputation of right great toe Family History Father Diabetes Mother Diabetes Hypertension Heart disease Maternal Aunt Diabetes Paternal Aunt Diabetes Paternal Uncle Diabetes Social History Household Members: Family Alcohol intake: never Patient Tobacco Use Status: Never used Tobacco Current occupational status: employed 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 Sutures removed and Steri-Strips applied He can make a fist and extend all his digits No locking or catching Sensation is intact Cap refill is brisk Psych Appearance: grossly normal Affect: normal affect Attitude: cooperative Assessment & Plan Assessment & Plan (1) Trigger finger, right ring finger: Code(s): M65.341 - Trigger finger, right ring finger (2) Type 2 diabetes mellitus with polyneuropathy: Code(s): E11.42 - Type 2 diabetes mellitus with diabetic polyneuropathy Plan Assessment & Plan: 1. Right ring finger trigger finger, S/P release DOS: 11/06/23 The patient appears to be doing well post-operatively I educated him about the post-operative course I discussed activity modifications, he is to lift nothing heavier than a cellphone for the next two weeks He will perform gentle ROM exercises at home He should avoid any underwater activities for the next 5 days He should gently massage about the incision site to reduce the risk of hypersensitivity He can follow up prn Scribed for Alesia Royal MD by Fritz Obrien, medical collections specialist, on 11/19/23 at 2:10 PM, EST. Coding Level of Care Code Global (79431) Diagnoses Trigger finger, right ring finger M65.341 Type 2 diabetes mellitus with polyneuropathy E11.42
[2023-11-19 14:02] VITALS: BMI 31.3
== END 2023-11-19 14:11 | disposition home or self-care (01) ==
PROVIDERS: PCP Internal Medicine; Visit Provider Orthopaedic Surgery
DX: M65.341 Trigger finger, right ring finger (principal); E11.42 Type 2 diabetes mellitus with diabetic polyneuropathy
CPT/HCPCS: 99024

== ENCOUNTER → 2023-11-19 13:45 | Outpatient (BNVA) | payer OTHER, SELFPAY | PROVIDERS: PCP Internal Medicine; Visit Provider Orthopaedic Surgery | DX: M65.341 Trigger finger, right ring finger (principal); E11.42 Type 2 diabetes mellitus with diabetic polyneuropathy | CPT/HCPCS: 99212 ==

== ENCOUNTER 2025-03-08 11:37 | Outpatient (AMB) | payer OTHER, SELFPAY ==
--- NOTE | 2025-03-08 11:40 | MHC.OFFVIS ---
Vital Signs 03/08/25 11:46 Height 5 ft 8 in Weight 183 lb BMI 27.8 Intake Visit Reasons: New prob-Trigger finger left ring finger with pain Intake Note: Narendra 59 yr old 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 male presents today for a new problem visit for his left ring finger. States his finger is catching and locking that strated about 1 year ago and has not improved. Patient has tried splinting but did not help. Patient would like to discuss surgical intervention. Hx of ring ring trigger finger release done with Dr Royal DOS 11/06/23 AR Allergies No Known Allergies Allergy (Verified 03/08/25 11:44) HPI HPI New prob-Trigger finger left ring finger with pain: Details: Narendra is a 59 year old 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 Diabetic man who presents with a new complaint of left ring finger trigger finger. He complains of painful locking & catching of his left ring finger He has a Hx of a right ring finger trigger release, DOS: 11/06/23. He says his symptoms are similar to his right hand prior to surgery PFS Medical History (Updated 03/08/25 @ 11:53 by Fritz Obrien) Neuropathy Type 2 diabetes mellitus with polyneuropathy Essential hypertension Hyperlipidemia LDL goal <100 Surgical History History of orchiectomy Hx of umbilical hernia repair History of amputation of right great toe Family History Father Diabetes Mother Diabetes Hypertension Heart disease Maternal Aunt Diabetes Paternal Aunt Diabetes Paternal Uncle Diabetes Social History Household Members: Family Alcohol intake: never Patient Tobacco Use Status: Never used Tobacco Current occupational status: employed 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, 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 Review of Systems Const All systems reviewed & are unremarkable except as noted in HPI and below Physical Exam Vital Signs: BMI result Body Mass Index 27.8 Const General: no acute distress and alert Orientation/consciousness: patient oriented x3 Neuro General: patient oriented x3 Extrem Other: Evaluation of Left Upper Extremity: The patient is alert, oriented, and in no acute distress Neuro: Median, Ulnar, Radial nerves motor and sensory intact and sensation is normal to the tips of all digits Vascular: Cap refill brisk ROM: He can make a fist and extend all his digits Visible & palpable locking & catching of the ring finger Tender over the a1 rufina of the ring finger Psych Appearance: grossly normal Affect: normal affect Attitude: cooperative Assessment & Plan Assessment & Plan (1) Trigger finger, left ring finger: Code(s): M65.342 - Trigger finger, left ring finger Category: Medical (2) Type 2 diabetes mellitus with polyneuropathy: Code(s): E11.42 - Type 2 diabetes mellitus with diabetic polyneuropathy Category: Medical Plan Assessment & Plan: 1. Left ring finger trigger finger I educated him about this condition I discussed operative and non-operative treatment options The patient would like to proceed with surgery The risks and benefits of operative treatment were discussed with the patient and the patient wishes to proceed with surgery. These risks include, but are not limited to risk of damage to blood vessels, nerves, tendons, infection, recurrence, incomplete relief of preoperative symptoms, persistent pain, possible need for further surgery and the risks associated with regional blocks and anesthesia. The plan is to take the patient to the operating room sometime in the next few weeks for the following procedures: 1. Left ring finger trigger release, under local All of the preoperative paperwork including the consent was reviewed today. All the patient's questions were answered. The patient understands that they will be contacted by our surgery assistant soon to schedule this procedure He denies blood thinners, asthma, heart, lung, kidney issues He is a Diabetic, with no recent HgA1c on file. They will need an updated HgA1c that is <8.1% in order to proceed with surgery, and they expressed understanding 2. Right ring finger trigger finger, S/P release DOS: 11/06/23 Resolved Scribed for Alesia Royal MD by Fritz Obrien, mobile paramedical examiner, on 03/08/25 at 11:55 AM, EST. Scribe Plan - Not visible on output: Scribed for Alesia Royal MD by Fritz Obrien mobile paramedical examiner, on [ ] at [ ], EST. Coding Level of Care Code Est Pt Level 4 (81280) Diagnoses Trigger finger, left ring finger M65.342 Type 2 diabetes mellitus with polyneuropathy E11.42
[2025-03-08 11:46] VITALS: BMI 27.8
--- OUTSIDE RECORDS SUMMARY | 2025-03-08 12:45 | XMS_ITS | Clinical Summary ---
Author Organization [address] Address [address] [place] [phone] Phone Care Team Providers Care Die Cutter Apprentice Name Role Phone Olimpia Boateng MD Primary Care Provider [phone] Allergies No known active allergies Encounters Date Type Department Care Team Description 12/30/2024 2:30 PM EDT Consult Orthopedic Surgery [facility] [address] [phone] Doug Miller DPM Controlled type 2 diabetes with neuropathy (CMS/HCC V24, CMS/HCC V28) (Primary Dx); History of amputation of right foot through metatarsal bone (CMS/HCC V24, CMS/HCC V28); Hammertoes of both feet; Arthritis of both feet; Dermatophytosis, nail 10/11/2024 Lab Requisition [facility] - Main Lab [address] [place] [phone] Olimpia Boateng MD Type 2 diabetes mellitus with diabetic polyneuropathy (CMS/HCC V24, CMS/HCC V28) from Last 3 Months Social History Tobacco Use Types Packs/Day Years Used Date Smoking Tobacco: Never Assessed Sex and Gender Information Value Date Recorded Sex Assigned at Not on file Legal Sex Male 3:03 PM EST Gender Identity Not on file Sexual Orientation Not on file Last Filed Vital Signs Vital Sign Reading Time Taken Comments Blood Pressure - - Pulse - - Temperature - - Respiratory Rate - - Oxygen Saturation - - Inhaled Oxygen Concentration - - Weight 83.9 kg (185 lb) 12/30/2024 2:45 PM EDT Height 177.8 cm (5' 10 ) 12/30/2024 2:45 PM EDT Body Mass Index 26.54 12/30/2024 2:45 PM EDT Plan of Treatment Upcoming Encounters Date Type Department Care Team (Late st Contact Info) Description 03/08/2025 2:30 PM EDT Office Visit Orthopedic Surgery - [place] [address] [phone] Doug Miller, LUCIA [address] [phone] Health Maintenance Due Date Last Done Comments Diabetes: Annual Foot Exam 1975 Diabetes: Annual Retina Eye Exam 1975 Hepatitis B Vaccines (1 of 3 - 19+ 3-dose series) 1984 Zoster Vaccines (2 of 2) 05/22/2022 03/27/2022 Pneumococcal Vaccine: 50+ Years (2 of 2 - PCV) 06/05/2022 06/05/2021 Cholesterol Screening (Lipid Panel) 07/10/2022 Colorectal Cancer Screening: Colonoscopy 07/10/2022 HIV Screening 07/10/2022 Hepatitis C Screening 07/10/2022 Social Influencers of Health Screening 07/10/2022 Depression Screening 08/11/2024 Diabetes: Annual Urine Albumin-Creatinine Ratio (uACR) 10/06/2024 Influenza Vaccine (#1) 2025 , 06/12/2023, 04/19/2022, Additional history exists Diabetes: Blood Sugar Control Test (HGBA1C) 07/20/2025 01/18/2025, 10/05/2024, 07/05/2024 Diabetes: Annual GFR (Glomerular Filtration Rate) 01/18/2026 01/18/2025, 10/05/2024, 07/05/2024 Hypertension/CHF/CAD Annual BMP Blood Test 01/18/2026 01/18/2025, 10/05/2024, 07/05/2024 DTaP,Tdap,and Td Vaccines (2 - Td or Tdap) 03/27/2032 03/27/2022 RSV Immunization Adult Patients (1 - 1-dose 75+ series) 2040 COVID-19 Vaccine Completed 04/19/2024, 09/2022, 06/29/2022, Additional history exists HIB Vaccines Aged Out No longer eligi ble based on patient's age to complete this topic HPV Vaccines Aged Out No longer eligi ble based on patient's age to complete this topic Hepatitis A Vaccines Aged Out No long er eligible based on patient's age to complete this topic IPV Vaccines Aged Out No longer eligi ble based on patient's age to complete this topic MMR Vaccines Aged Out No longer eligi ble based on patient's age to complete this topic Meningococcal ACWY Vaccine Aged Out N o longer eligible based on patient's age to complete this topic Meningococcal B Vaccine Aged Out No l onger eligible based on patient's age to complete this topic RSV Immunization Patients Under 20 months Aged Out No longer eligible based on patient's age to complete this topic Varicella Vaccines Aged Out No longer eligible based on patient's age to complete this topic Procedures Procedure Name Priority Date/Time Associated Diagnosis Comments HEMOGLOBIN A1C Routine 01/18/2025 11:48 AM EDT Type 2 diabetes mellitus with diabetic polyneuropathy ([facility] V24, [facility] V28) VITAMIN B12 AND FOLATE Routine 01/18/2025 11:48 AM EDT Type 2 diabetes mellitus with diabetic polyneuropathy ([facility] V24, [facility] V28) COMPREHENSIVE METABOLIC PANEL Routine 01/18/2025 11:48 AM EDT Type 2 diabetes mellitus with diabetic polyneuropathy ([facility] V24, [facility] V28) from Last 3 Months Results * (ABNORMAL) Vitamin B12 and folate (01/18/2025 11:48 AM EDT) Vitamin B-12 569 250 - 900 pcg/mL LAB CHEMISTRY METHOD 01/18/2025 2:10 PM T [facility] Folate >20.0(H) 2.8 - 17.0 ng/ml LAB CHEMISTRY METHOD 01/18/2025 2:10 PM [facility] Blood Venous blood specimen / Unknown Venipuncture / Unknown 01/18/2025 11:48 AM EDT 01/18/2025 12:16 PM EDT us Olimpia Boateng MD LAB BLOOD ORDERABLES Final Re sult Performing Organization Address [facility]/ZIP Co de Phone Number [facility] [address] [place] [address], [place] [phone] * (ABNORMAL) Hemoglobin A1c (01/18/2025 11:48 AM EDT) [facility] Hemoglobin A1C 7.1(H) <6.5 % LAB CHEMISTRY METHOD 01/18/2025 2:07 PM EDT [facility] Mean Bld Glu Estim. 157 mg/dL LAB CHEMISTRY METHOD 01/18/2025 2:07 PM EDT [facility] Blood Venous blood specimen / Unknown Venipuncture / Unknown 01/18/2025 11:48 AM EDT 01/18/2025 12:16 PM EDT us Olimpia Boateng MD LAB BLOOD ORDERABLES Final Re sult Performing Organization Address [facility]/ZIP Co de Phone Number [facility] [address] [place] [address], [place] [phone] * (ABNORMAL) Comprehensive metabolic panel (01/18/2025 11:48 AM EDT) [facility] Sodium 141 133 - 145 mmol/L LAB CHEMISTRY METHOD 01/18/2025 2:10 PM EDT [facility] Potassium 4.5 3.5 - 5.5 mmol/L LAB CHEMISTRY METHOD 01/18/2025 2:10 PM EDT [facility] Chloride 108 96 - 110 mmol/L LAB CHEMISTRY METHOD 01/18/2025 2:10 PM EDT [facility] CO2 25 21 - 32 mmol/L LAB CHEMISTRY METHOD 01/18/2025 2:10 PM EDT [facility] Anion Gap 8 3 - 11 LAB CHEMISTRY METHOD 01/18/2025 2:10 PM [facility] Glucose 194(H) 70 - 100 mg/dL LAB CHEMISTRY METHOD 01/18/2025 2:10 PM [facility] BUN 9 5 - 25 mg/dL LAB CHEMISTRY METHOD 01/18/2025 2:10 PM [facility] Creatinine 0.84 0.70 - 1.30 mg/dL LAB CHEMISTRY METHOD 01/18/2025 2:10 PM [facility] eGFR 100 >=60 mL/min/1. 73m2 LAB CHEMISTRY METHOD 01/18/2025 2:10 PM [facility] Comment:Calculation based on the Chronic Kidney Disease Epidemiology Collaboration (CKD-EPI) equation refit without adjustment for race. BUN/Creatinine Ratio 10.7 LAB CHEMISTRY METHOD 01/18/2025 2:10 PM [facility] Calcium 9.2 8.5 - 10.5 mg/dL LAB CHEMISTRY METHOD 01/18/2025 2:10 PM [facility] AST (SGOT) 45(H) 10 - 42 unit/L LAB CHEMISTRY METHOD 01/18/2025 2:10 PM [facility] ALT (SGPT) 61(H) 10 - 60 unit/L LAB CHEMISTRY METHOD 01/18/2025 2:10 PM [facility] Alkaline Phosphatase 100 42 - 121 unit/L LAB CHEMISTRY METHOD 01/18/2025 2:10 PM [facility] Total Protein 6.8 6.0 - 8.0 g/dL LAB CHEMISTRY METHOD 01/18/2025 2:10 PM [facility] Albumin 3.6 3.2 - 5.0 g/dL LAB CHEMISTRY METHOD 01/18/2025 2:10 PM [facility] Total Bilirubin 0.8 0.0 - 1.4 mg/dL LAB CHEMISTRY METHOD 01/18/2025 2:10 PM EDT [facility] Blood Venous blood specimen / Unknown Venipuncture / Unknown 01/18/2025 11:48 AM EDT 01/18/2025 12:16 PM EDT us Olimpia Boateng MD LAB BLOOD ORDERABLES Final Re sult [facility] [address] [place] [address], [place] [phone] from Last 3 Months Insurance MEDICAID - [place] [facility] PLAN Care Teams Die Cutter Apprentice Relationship Specialty Start Date End Date Olimpia Boateng MD [address] [place] [address] [place] [address] PCP - General Internal Medicine 07/05/24
== END 2025-03-08 12:53 | disposition home or self-care (01) ==
LOC: HO.HOS 11:37
PROVIDERS: PCP Internal Medicine; Visit Provider Orthopaedic Surgery
DX: M65.342 Trigger finger, left ring finger (principal); E11.42 Type 2 diabetes mellitus with diabetic polyneuropathy
CPT/HCPCS: 99214

== ENCOUNTER → 2025-03-08 11:37 | Outpatient (BNVA) | payer OTHER, SELFPAY | PROVIDERS: PCP Internal Medicine; Visit Provider Orthopaedic Surgery | DX: M65.342 Trigger finger, left ring finger (principal); E11.42 Type 2 diabetes mellitus with diabetic polyneuropathy | CPT/HCPCS: 99212 ==

== ENCOUNTER 2025-05-05 14:07 | Day surgery (SDC) | payer OTHER, SELFPAY ==
[2025-05-05 14:10] VITALS: BMI 28.4
[2025-05-05 14:13] VITALS: BP 126/67; PULSE 83; RESP 16; TEMP 36.5; O2SAT 98
--- NOTE | 2025-05-05 16:35 | MHC.SHP ---
Pre-Procedural Eval Section A - 24 Hr Update-Section A only Date of Service: 05/05/25 The patient is an INPATIENT: No Changes since office visit: No Cold of Flu in the past 2 weeks, No New Medical Problems, No Changes in Medication and No Patient answered all questions The patient has been examined within 24 hours of the surgical procedure. The History & Physical has been completed within 30 days and I have reviewed it.: Yes Section B - Complete if H&P > 30 days Chief Complaint: Trigger finger, left ring finger Allergies: Allergies Allergy/AdvReac Type Severity Reaction Status Date / Time No Known Allergies Allergy Verified 03/08/25 11:44 Plan Diagnosis/Plan: Unchanged I have reviewed the history and physical and performed a pertinent physical examination on my patient. No changes have occurred unless specified. Time Spent With Patient Time: Total time managing care of this patient today ____ minutes.
--- NOTE | 2025-05-05 16:36 | W.PM.OPN ---
Operative Note Operative Note Date of Service: 05/05/25 Narrative: Operative Note Preop diagnosis: 1. Left ring finger Trigger finger Postop diagnosis: Same Procedure: 1. Left ring finger A1 rufina release Surgeon: Alesia Royal MD Hotel Sales Manager: Denis TEMPLETON Anesthesia: local block using 1% lidocaine with epinephrine Findings: No locking or catching after A1 rufina release EBL: Less than 5 mL Tourniquet time: None Specimens: None Complications: None Disposition: Brought to recovery room in stable condition Plan: Follow-up for 10-14 days for wound check and suture removal Indications: The patient is 59 years old, with a left ring finger trigger finger that has been unresponsive to nonoperative management. The risks and benefits of operative treatment including but not limited to risk of damage to blood vessels, nerves, tendons, infection, persistent pain, persistent symptoms, recurrence or possible need for additional surgery were discussed with the patient and the patient wishes to proceed with surgery. Procedure: Once consent was obtained a local block was performed in the preop area using a combination of 1% lidocaine with epinephrine. The patient was then brought back to the operating suite and placed on the operative table in supine position. The left upper extremity was prepped and draped in a standard surgical fashion. Once assured that we had a good block, a 1.5 cm oblique incision was made centered over the A1 rufina of the left ring finger . The incision was made through the skin to the subcutaneous tissues using a #15 blade. Careful dissection was made down to the level of the A1 rufina using tenotomy scissors, with care being taken to protect the nearby neurovascular structures. A longitudinal incision was made in the A1 rufina 1st using a #15 blade, then using tenotomy scissors under direct visualization. The A1 rufina was noted to be thickened. Following our A1 rufina release, we no longer saw any locking or catching of the digit with flexion and extension. Once satisfied with our A1 rufina release the wound was copiously irrigated with normal saline and hemostasis was obtained with a brief period of local pressure. The skin edges were reapproximated with some 5.0 nylon suture material and a sterile dressing was applied. The patient appears to have tolerated the procedure well and with no complications. All digits were well vascularized at the conclusion of the case.
[2025-05-05 16:58] VITALS: BP 114/63; PULSE 71; RESP 16; O2SAT 98
== END 2025-05-05 17:22 | disposition home or self-care (01) ==
PROVIDERS: PCP Internal Medicine; Visit Provider Orthopaedic Surgery
PROC: (CPT 26055; principal; 2025-05-05 15:10)
DX: M65.342 Trigger finger, left ring finger (principal); M79.645 Pain in left finger(s); E11.42 Type 2 diabetes mellitus with diabetic polyneuropathy; I10 Essential (primary) hypertension; Z89.411 Acquired absence of right great toe; E78.5 Hyperlipidemia, unspecified; Z90.79 Acquired absence of other genital organ(s); Z98.890 Other specified postprocedural states
CPT/HCPCS: 26055; J0165; J2003

== ENCOUNTER → 2025-05-05 14:07 | Outpatient (BNV) | payer OTHER, SELFPAY | PROVIDERS: PCP Internal Medicine; Visit Provider Orthopaedic Surgery | DX: M65.342 Trigger finger, left ring finger (principal) | CPT/HCPCS: 26055 ==

== ENCOUNTER 2025-05-10 10:11 | Outpatient (REF) | payer OTHER, SELFPAY ==
--- OUTSIDE RECORDS SUMMARY | 2025-05-10 11:16 | XMS_ITS | Encounter Summary ---
Author Organization [facility] Address [address] [place] [address] Care Team Providers Care Oyster Bed Worker Name Role Phone Olimpia Boateng MD Primary Care Provider [phone] Encounter Details Date Type Department Care Team (Late st Contact Info) Description 10/11/2024 Lab Requisition [facility] - Main Lab [address] [place] [phone] Olimpia Boateng MD [address] [place] [address] [place] [address] Type 2 diabetes mellitus with diabetic polyneuropathy (CMS/HCC V24, CMS/HCC V28) Social History Tobacco Use Types Packs/Day Years Used Date Smoking Tobacco: Never Assessed Sex and Gender Information Value Date Recorded Sex Assigned at Not on file Legal Sex Male 3:03 PM EST Gender Identity Not on file Sexual Orientation Not on file documented as of this encounter Plan of Treatment Not on file documented as of this encounter Procedures Procedure Name Priority Date/Time Associated Diagnosis Comments VITAMIN B12 AND FOLATE Routine 01/18/2025 11:48 AM EDT Type 2 diabetes mellitus with diabetic polyneuropathy (CMS/HCC V24, CMS/HCC V28) HEMOGLOBIN A1C Routine 01/18/2025 11:48 AM EDT Type 2 diabetes mellitus with diabetic polyneuropathy (CMS/HCC V24, CMS/HCC V28) COMPREHENSIVE METABOLIC PANEL Routine 01/18/2025 11:48 AM EDT Type 2 diabetes mellitus with diabetic polyneuropathy (CMS/HCC V24, CMS/HCC V28) documented in this encounter Results * (ABNORMAL) Hemoglobin A1c (01/18/2025 11:48 AM EDT) [facility] Hemoglobin A1C 7.1(H) <6.5 % LAB CHEMISTRY METHOD 01/18/2025 2:07 PM EDT [facility] Mean Bld Glu Estim. 157 mg/dL LAB CHEMISTRY METHOD 01/18/2025 2:07 PM EDT [facility] Blood Venous blood specimen / Unknown Venipuncture / Unknown 01/18/2025 11:48 AM EDT 01/18/2025 12:16 PM EDT us Olimpia Boateng MD LAB BLOOD ORDERABLES Final Re sult Performing Organization Address [facility]/ZIP Co de Phone Number [facility] [address] [place] [address], [place] [phone] * (ABNORMAL) Vitamin B12 and folate (01/18/2025 11:48 AM EDT) [facility] Vitamin B-12 569 250 - 900 pcg/mL LAB CHEMISTRY METHOD 01/18/2025 2:10 PM EDT [facility] Folate >20.0(H) 2.8 - 17.0 ng/ml LAB CHEMISTRY METHOD 01/18/2025 2:10 PM EDT [facility] Blood Venous blood specimen / Unknown Venipuncture / Unknown 01/18/2025 11:48 AM EDT 01/18/2025 12:16 PM EDT us Olimpia Boateng MD LAB BLOOD ORDERABLES Final Re sult Performing Organization Address [facility]/ZIP Co de Phone Number [facility] [address] [place] [address], [place] [phone] * (ABNORMAL) Comprehensive metabolic panel (01/18/2025 11:48 AM EDT) Sodium 141 133 - 145 mmol/L LAB CHEMISTRY METHOD 01/18/2025 2:10 PM [facility] Potassium 4.5 3.5 - 5.5 mmol/L LAB CHEMISTRY METHOD 01/18/2025 2:10 PM [facility] Chloride 108 96 - 110 mmol/L LAB CHEMISTRY METHOD 01/18/2025 2:10 PM [facility] CO2 25 21 - 32 mmol/L LAB CHEMISTRY METHOD 01/18/2025 2:10 PM [facility] Anion Gap 8 3 - 11 LAB CHEMISTRY METHOD 01/18/2025 2:10 PM [facility] Glucose 194(H) 70 - 100 mg/dL LAB CHEMISTRY METHOD 01/18/2025 2:10 PM [facility] BUN 9 5 - 25 mg/dL LAB CHEMISTRY METHOD 01/18/2025 2:10 PM [facility] Creatinine 0.84 0.70 - 1.30 mg/dL LAB CHEMISTRY METHOD 01/18/2025 2:10 PM [facility] eGFR 100 >=60 mL/min/1. 73m2 LAB CHEMISTRY METHOD 01/18/2025 2:10 PM [facility] Comment:Calculation based on the Chronic Kidney Disease Epidemiology Collaboration (CKD-EPI) equation refit without adjustment for race. BUN/Creatinine Ratio 10.7 LAB CHEMISTRY METHOD 01/18/2025 2:10 PM [facility] Calcium 9.2 8.5 - 10.5 mg/dL LAB CHEMISTRY METHOD 01/18/2025 2:10 PM [facility] AST (SGOT) 45(H) 10 - 42 unit/L LAB CHEMISTRY METHOD 01/18/2025 2:10 PM [facility] ALT (SGPT) 61(H) 10 - 60 unit/L LAB CHEMISTRY METHOD 01/18/2025 2:10 PM EDT [facility] Alkaline Phosphatase 100 42 - 121 unit/L LAB CHEMISTRY METHOD 01/18/2025 2:10 PM EDT [facility] Total Protein 6.8 6.0 - 8.0 g/dL LAB CHEMISTRY METHOD 01/18/2025 2:10 PM EDT [facility] Albumin 3.6 3.2 - 5.0 g/dL LAB CHEMISTRY METHOD 01/18/2025 2:10 PM EDT [facility] Total Bilirubin 0.8 0.0 - 1.4 mg/dL LAB CHEMISTRY METHOD 01/18/2025 2:10 PM EDT [facility] Blood Venous blood specimen / Unknown Venipuncture / Unknown 01/18/2025 11:48 AM EDT 01/18/2025 12:16 PM EDT us Olimpia Boateng MD LAB BLOOD ORDERABLES Final Re sult [facility] [address] [place] [address], [place] [phone] documented in this encounter Visit Diagnoses Diagnosis Type 2 diabetes mellitus with diabetic polyneuropathy (CMS/HCC V24, CMS/HCC V28) documented in this encounter Care Teams Oyster Bed Worker Relationship Specialty Start Date End Date Olimpia Boateng MD [address] [place] [address] [place] [address] PCP - General Internal Medicine 07/05/24 documented as of this encounter
--- OUTSIDE RECORDS SUMMARY | 2025-05-10 11:16 | XMS_ITS | Clinical Summary ---
Author Organization [address] Address [address] [place] [address] Phone Care Team Providers Care Supervisor Accounting Clerks Name Role Phone Olimpia Boateng MD Primary Care Provider [phone] Allergies No known active allergies Social History Tobacco Use Types Packs/Day Years [...] 12/30/2024 2:45 PM EDT Plan of Treatment Health Maintenance Due Date Last Done Comments Colorectal Cancer Screening: Colonoscopy 1965 Hepatitis B Vaccines (1 of 3 - 19+ 3-dose series) 1984 Zoster Vaccines (2 of 2) 05/22/2022 03/27/2022 Pneumococcal Vaccine: 50+ Years (2 of 2 - PCV) 06/05/2022 06/05/2021 Cholesterol Screening (Lipid Panel) 07/10/2022 HIV Screening 07/10/2022 Hepatitis C Screening 07/10/2022 Social Influencers of Health Screening 07/10/2022 Depression Screening 08/11/2024 Influenza Vaccine (#1) 2025 , 06/12/2023, 04/19/2022, Additional history exists Hypertension/CHF/CAD Annual BMP Blood Test 01/18/2026 01/18/2025, [...] Procedure Name Priority Date/Time Associated Diagnosis Comments COMPREHENSIVE METABOLIC PANEL Routine 01/18/2025 11:48 AM EDT Type 2 diabetes mellitus with diabetic polyneuropathy ([facility] V24, [facility] V28) from Last 3 Months or Most Recently Relevant to Health Maintenance Results * (ABNORMAL) Comprehensive metabolic panel (01/18/2025 11:48 AM EDT) Sodium 141 133 - 145 mmol/L LAB CHEMISTRY METHOD 01/18/2025 2:10 PM EDT [facility] Potassium 4.5 3.5 - 5.5 mmol/L LAB CHEMISTRY METHOD 01/18/2025 2:10 PM T [facility] Chloride 108 96 - 110 mmol/L LAB CHEMISTRY METHOD 01/18/2025 2:10 PM [facility] CO2 25 21 - 32 mmol/L LAB CHEMISTRY METHOD 01/18/2025 2:10 PM [facility] Anion Gap 8 3 - 11 LAB CHEMISTRY METHOD 01/18/2025 2:10 PM [facility] Glucose 194(H) 70 - 100 mg/dL LAB CHEMISTRY METHOD 01/18/2025 2:10 PM [facility] BUN 9 5 - 25 mg/dL LAB CHEMISTRY METHOD 01/18/2025 2:10 PM [facility] Creatinine 0.84 0.70 - 1.30 mg/dL LAB CHEMISTRY METHOD 01/18/2025 2:10 PM [facility] eGFR 100 >=60 mL/min/1. 73m2 LAB CHEMISTRY METHOD 01/18/2025 2:10 PM [facility] Comment:Calculation based on the Chronic Kidney Disease Epidemiology Collaboration (CKD-EPI) equation refit without adjustment for race. BUN/Creatinine Ratio 10.7 LAB CHEMISTRY METHOD 01/18/2025 2:10 PM [facility] Calcium 9.2 8.5 - 10.5 mg/dL LAB CHEMISTRY METHOD 01/18/2025 2:10 PM [facility] AST (SGOT) 45(H) 10 - 42 unit/L LAB CHEMISTRY METHOD 01/18/2025 2:10 PM [facility] ALT (SGPT) 61(H) 10 - 60 unit/L LAB CHEMISTRY METHOD 01/18/2025 2:10 PM [facility] Alkaline Phosphatase 100 42 - 121 unit/L LAB CHEMISTRY METHOD 01/18/2025 2:10 PM [facility] Total Protein 6.8 6.0 - 8.0 g/dL LAB CHEMISTRY METHOD 01/18/2025 2:10 PM [facility] Albumin 3.6 3.2 - 5.0 g/dL LAB CHEMISTRY METHOD 01/18/2025 2:10 PM EDT [facility] Total Bilirubin 0.8 0.0 - 1.4 mg/dL LAB CHEMISTRY METHOD 01/18/2025 2:10 PM EDT [facility] Blood Venous blood specimen / Unknown Venipuncture / Unknown 01/18/2025 11:48 AM EDT 01/18/2025 12:16 PM EDT us Olimpia Boateng MD LAB BLOOD ORDERABLES Final Re sult [facility] [address] [place] [address], from Last 3 Months or Most Recently Relevant to Health Maintenance Insurance MEDICAID - [place] [facility] PL[facility] Care Teams Supervisor Accounting Clerks Relationship Specialty Start Date End Date Olimpia Boateng MD [address] [place] [address] [place] [address] PCP - General Internal Medicine 07/05/24
[2025-05-10 12:13] LABS: Alanine Aminotransferase 43 U/L (0-40); Albumin Level 4.4 g/dL (3.5-5.0); Alkaline Phosphatase 80 U/L (39-117); Anion Gap 12 (12-20); Aspartate Amino Transferase 50 U/L (5-37); Blood Urea Nitrogen 11 mg/dL (9-16); Calcium 9.6 mg/dL (8.4-10.2); Carbon Dioxide 28 mmol/L (22-29); Chloride 107 mmol/L (96-108); Cholesterol 97 mg/dL (<200); Estimated Glomerular Filt Rate > 60; HDL Cholesterol 31 mg/dL (>40); Potassium 4.1 mmol/L (3.3-5.1); Sodium 143 mmol/L (135-145); Total Protein 7.0 g/dL (6.5-8.0); Triglycerides 95 mg/dL (<150)
[2025-05-10 12:42] LABS: Prostate Specific Antigen 0.60 ng/mL (<0.05-4.0)
== END 2025-05-10 10:12 | disposition home or self-care (01) ==
LOC: HO.10HDL 10:11
PROVIDERS: Visit Provider Internal Medicine
DX: E11.42 Type 2 diabetes mellitus with diabetic polyneuropathy (principal); E78.2 Mixed hyperlipidemia; N40.0 Benign prostatic hyperplasia without lower urinary tract symptoms
CPT/HCPCS: 36415; 80053; 80061; 82043; 82570; 83036; 84153

== ENCOUNTER 2025-05-18 15:01 | Outpatient (AMB) | payer OTHER, SELFPAY ==
--- NOTE | 2025-05-18 15:09 | A.OFFVIS_ITS ---
Vital Signs 05/18/25 15:11 Height 5 ft 8 in Weight 186 lb BMI 28.3 Intake Visit Reasons: PO LT RF trigger 05/05/25 AR Intake Note: Narendra is a 59 year old 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 male presents today post-operatively status post Left Ring Trigger Finger Release performed by Dr. Royal on 05/05/25. States locking has resolved, he still has a little swelling and is limiting his ROM. Sutures removed and steri strips applied. Allergies No Known Allergies Allergy (Verified 05/18/25 15:12) HPI HPI PO LT RF trigger 05/05/25 AR: Details: Narendra is a 59 year old 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 Diabetic man who returns S/P left ring finger trigger release, DOS: 05/05/25 He says he is doing well and no longer has any locking or catching. He has a Hx of a right ring finger trigger release, DOS: 11/06/23. He says his symptoms are similar to his right hand prior to surgery [facility] Medical History (Updated 03/08/25 @ 11:53 by Fritz Obrien) Neuropathy Type 2 diabetes mellitus with polyneuropathy Essential hypertension Hyperlipidemia LDL goal <100 Surgical History History of orchiectomy Hx of umbilical hernia repair History of amputation of right great toe Family History Father Diabetes Mother Diabetes Hypertension Heart disease Maternal Aunt Diabetes Paternal Aunt Diabetes Paternal Uncle Diabetes Social History Household Members: Family Alcohol intake: never Patient Tobacco Use Status: Never used Tobacco Current occupational status: employed Current occupation: [employer], 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 Review of Systems Const All systems reviewed & are unremarkable except as noted in HPI and below Physical Exam Vital Signs: BMI result Body Mass Index 28.3 Const General: no acute distress and alert Orientation/consciousness: patient oriented x3 Neuro General: patient oriented x3 Extrem Other: The patient was alert oriented and in no acute distress The incision is healing well with no erythema drainage or evidence of infection. Sutures removed and Steri-Strips applied He can make a fist and extend all his digits No locking or catching Sensation is intact Cap refill is brisk Psych Appearance: grossly normal Affect: normal affect Attitude: cooperative Assessment & Plan Assessment & Plan (1) Trigger finger, left ring finger: Code(s): M65.342 - Trigger finger, left ring finger Category: Medical (2) Type 2 diabetes mellitus with polyneuropathy: Code(s): E11.42 - Type 2 diabetes mellitus with diabetic polyneuropathy Category: Medical Plan Assessment & Plan: 1. Left ring finger trigger finger, S/P release DOS: 05/05/25 The patient appears to be doing well post-operatively I educated him about the post-operative course I explained the signs and symptoms of infection, if the patient develops any new or worsening erythema, drainage, pain, or warmth they should contact the clinic or attend the ED. I discussed activity modifications, he is to lift nothing heavier than a cellphone for the next 2 weeks. They should also avoid any heavy impact activities, falls, or sports activities for the next 4 weeks He will perform gentle ROM exercises at home He should avoid any underwater activities for the next 5 days He should gently massage about the incision site to reduce the risk of hypersensitivity He can follow up prn 2. Right ring finger trigger finger, S/P release DOS: 11/06/23 Resolved Scribed for Alesia Royal MD by Fritz Obrien, medical service representative, on 05/18/25 at 3:15 PM, EST. Coding Level of Care Code Global (54101) Diagnoses Trigger finger, left ring finger M65.342 Type 2 diabetes mellitus with polyneuropathy E11.42
[2025-05-18 15:11] VITALS: BMI 28.3
== END 2025-05-18 15:36 | disposition home or self-care (01) ==
LOC: HO.HOS 15:01
PROVIDERS: PCP Internal Medicine; Visit Provider Orthopaedic Surgery
DX: M65.342 Trigger finger, left ring finger (principal); E11.42 Type 2 diabetes mellitus with diabetic polyneuropathy
CPT/HCPCS: 99024

== ENCOUNTER → 2025-05-18 15:01 | Outpatient (BNVA) | payer OTHER, SELFPAY | PROVIDERS: PCP Internal Medicine; Visit Provider Orthopaedic Surgery | DX: M65.342 Trigger finger, left ring finger (principal); E11.42 Type 2 diabetes mellitus with diabetic polyneuropathy | CPT/HCPCS: 99212 ==